=== PATIENT | male | born 1980 | race Caucasian/White ===

== ENCOUNTER 2023-02-25 11:47 | Inpatient (IN) | payer MEDICAID, SELFPAY ==
[2023-02-25 11:40] VITALS: BMI 25.8
[2023-02-25 11:51] VITALS: BP 131/71; PULSE 76; RESP 18; TEMP 36.5; O2SAT 99
[2023-02-25 14:00] VITALS: BP 104/66; PULSE 72; RESP 16; TEMP 36.7; O2SAT 97
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
[2023-02-25 20:13] VITALS: BP 111/71; PULSE 70; RESP 18; TEMP 36.7; O2SAT 97
[2023-02-25] MEDS: quetiapine 300 mg Tablet 150 MG PO (21:10)
[2023-02-26 06:00] VITALS: RESP 16
[2023-02-26] MEDS: lamoTRIgine 25 mg Tablet 50 MG PO (07:42)
[2023-02-26] MEDS: naltrexone hcl 50 mg Tablet PO (07:42)
[2023-02-26] MEDS: hyDROXYzine 25 mg Capsule 50 MG PO (12:37)
[2023-02-26 14:00] VITALS: BP 117/70; PULSE 75; RESP 20; TEMP 36.4; O2SAT 97
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
[2023-02-26] MEDS: quetiapine 100 mg Tablet 250 MG PO (20:43)
[2023-02-26 20:54] VITALS: BP 110/58; PULSE 80; RESP 18; TEMP 36.7; O2SAT 98
[2023-02-27 06:00] VITALS: RESP 18
[2023-02-27] MEDS: naltrexone hcl 50 mg Tablet PO (08:20)
[2023-02-27] MEDS: lamoTRIgine 25 mg Tablet 50 MG PO (08:20)
[2023-02-27] MEDS: hyDROXYzine 25 mg Capsule 50 MG PO ×2 (12:30→18:14)
[2023-02-27 14:00] VITALS: BP 112/77; PULSE 86; RESP 18; TEMP 36.6; O2SAT 97
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
[2023-02-27] MEDS: quetiapine 300 mg Tablet PO (20:09)
[2023-02-27 22:00] VITALS: BP 123/84; PULSE 72; RESP 16; TEMP 36.8; O2SAT 98
[2023-02-28 06:00] VITALS: RESP 15
[2023-02-28] MEDS: lamoTRIgine 25 mg Tablet 50 MG PO (09:15)
[2023-02-28] MEDS: hyDROXYzine 25 mg Capsule 50 MG PO (09:15)
[2023-02-28] MEDS: naltrexone hcl 50 mg Tablet PO (09:15)
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
[2023-02-28 11:22] VITALS: BP 123/84; PULSE 72; RESP 15; TEMP 36.8; O2SAT 98
== END 2023-02-28 11:36 | disposition home or self-care (01) | DRG 897 ==
PROVIDERS: Admitting Provider Psychiatry & Neurology Psychiatry; Visit Provider Psychiatry & Neurology Psychiatry
DX: F15.259 Other stimulant dependence with stimulant-induced psychotic disorder, unspecified (principal); F32.9 Major depressive disorder, single episode, unspecified; F43.10 Post-traumatic stress disorder, unspecified; Z87.440 Personal history of urinary (tract) infections; Z98.84 Bariatric surgery status
CPT/HCPCS: 97150; 97165

== ENCOUNTER 2023-08-28 12:12 | Emergency (ER) | payer MEDICAID, SELFPAY ==
[2023-08-28 12:18] VITALS: BP 129/63; PULSE 85; RESP 16; TEMP 36.8; O2SAT 99; BMI 24.3
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
[2023-08-28 12:45] VITALS: PULSE 78; RESP 17; O2SAT 98
== END 2023-08-28 12:46 | disposition home or self-care (01) ==
PROVIDERS: Emergency Provider Emergency Medicine
DX: F41.9 Anxiety disorder, unspecified (principal); F15.10 Other stimulant abuse, uncomplicated
CPT/HCPCS: 99283

== ENCOUNTER 2023-08-29 10:27 | Inpatient (IN) | payer MEDICAID, SELFPAY ==
--- NOTE | 2023-08-29 10:33 | ED.C_ITS ---
HPI - Psych General: Stated Complaint: 96 Hold Time Seen by Provider: 08/29/23 10:30 Source: patient and police Mode of arrival: ambulatory Limitations: no limitations History of Present Illness: 42-year-old male history of meth abuse patient's here on a 96-hour hold placed by his mother patient arrived with police states that he believes that most people are a I believe that some people are out to get him been feeling paranoid he denies any suicidality or homicidality last meth use was 5 days ago. Associated symptoms: Deny depression Review of Systems Const: Denies: fever(s), chills, body aches or change in appetite Eyes: Denies: blurry vision or eye discomfort ENMT: Denies: throat pain or dental pain Card: Denies: chest pain Resp: Denies: dyspnea GI: Denies: abdominal pain, nausea, vomiting or diarrhea : Denies: dysuria Musc: Denies: neck pain or back pain Skin/Breast: Denies: rash Neuro: Denies: headache(s) Psych: Reports: paranoia; Denies: depression Physical Exam Const: COMMON NORMALS: patient oriented x3 HENMT: COMMON NORMALS: normocephalic and atraumatic HEAD & SCALP: normocephalic and atraumatic Eye: COMMON NORMALS: Equal, round and reactive pupils present and EOMs intact bilaterally PUPIL: Yes Equal, round and reactive pupils present Neck/C-Spine: COMMON NORMALS: full ROM and supple Chest: COMMONS NORMALS: normal inspection of the chest Resp: COMMON NORMALS: normal respiratory effort Cardio: COMMON NORMALS: regular rate, regular rhythm and No murmurs present (Cardio) RATE: regular rate RHYTHM: regular rhythm GI: COMMON NORMALS: Normal to inspection, nondistended, normoactive bowel sounds present, Soft to palpation, non-tender and no masses PALPATION: Yes Soft to palpation Extremity: COMMON NORMALS: normal to inspection and full ROM Neuro: COMMON NORMALS: patient oriented x3, moves all extremities and no focal motor deficits Psych: COMMON NORMALS: mental status grossly normal, Normal thought process present and cooperative THOUGHT PROCESS: Normal thought process present THOUGHT CONTENT: Yes Derealization present Skin: COMMON NORMALS: no rashes or lesions noted and no wounds GENERAL SKIN EXAM: no rashes or lesions noted MDM - Psych Medical Decision Making Patient presents here under 96-hour hold for paranoia he also history of meth abuse patient is cooperative here I spoke to psychiatrist will admit to the psych yadav at this time. Medical Records I reviewed the patient's medical records. Lab Data I reviewed the patient's lab results. 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
[2023-08-29 10:40] VITALS: BP 128/81; PULSE 73; RESP 18; TEMP 36.8; O2SAT 97
[2023-08-29 10:56] LABS: Basophils % 0.5 %; Eosinophils % 0.2 %; Hematocrit 42.8 % (37-53); Lymphocytes % 16.5 %; Mean Corpuscular HGB Conc 34.3 g/dL (30-55); Mean Corpuscular Hemoglobin 33.3 pg (27-33); Mean Corpuscular Volume 97.1 fl (82-101); Monocytes # 0.3 10^3/uL (0.2-0.9); Monocytes % 5.2 %; Neutrophils # 4.61 10^3/uL (1.8-7.7); Neutrophils % 77.4 %; Nucleated Red Blood Cells % 0 %; Platelet Count 186 10^3/cmm (157-399); Red Blood Count 4.41 10^6/uL (3.85-5.65); Red Cell Distribution Width 11.6 % (12.1-15.1); White Blood Count 5.95 10^3/uL (3.29-11.43)
--- NOTE | 2023-08-29 11:00 | PC.NURSE ---
96 hour hold rights reviewed and read with patient. Patient verbalized understandings. Copy of rights left at the bedside with patient.
--- NOTE | 2023-08-29 11:04 | PC.PHAR ---
WAITING TRAFFIC INVESTIGATOR BACK FROM [facility] IN [place] TO COMPLETE MED REC
[2023-08-29 11:08] LABS: Amphetamines Screen Urine Negative (Negative); Barbiturates Screen Urine Negative (Negative); Benzodiazepines Screen Urine Negative (Negative); Cocaine Screen Urine Negative (Negative); Opiate Screen Urine Negative (Negative); PCP Screen Urine Negative (Negative); THC Screen Urine Positive (Negative)
[2023-08-29 11:13] LABS: Alanine Aminotransferase 12 U/L (0-41); Albumin Level 4.2 g/dL (3.5-5.2); Alkaline Phosphatase 83 U/L (40-130); Anion Gap 10.1 (5-19); Aspartate Amino Transferase 12 U/L (0-40); Blood Urea Nitrogen 10 mg/dL (6-20); Calcium 9.1 mg/dL (8.5-10.5); Carbon Dioxide 29 mmol/L (22-29); Chloride 103 mmol/L (98-107); Globulin 2.1 g/dL (1.3-4.6); Glucose 94 mg/dL (65-115); Osmolality Calculated 285 mOsm/kg (285-295); Potassium 4.1 mmol/L (3.5-5.1); Salicylate 0.5 mg/dL (3-10); Sodium 138 mmol/L (136-145); Total Bilirubin 0.5 mg/dL (0.15-1.2); Total Protein 6.3 g/dL (6.6-8.7)
[2023-08-29 11:16] LABS: Acetaminophen < 5.0 ug/mL (10-30); Alcohol Level < 10 mg/dL (0-10)
[2023-08-29 11:54] VITALS: BP 138/81; PULSE 70; RESP 16; TEMP 36.4; O2SAT 100
[2023-08-29] MEDS: hyDROXYzine 25 mg Capsule 50 MG PO (12:12)
[2023-08-29 14:00] VITALS: BP 138/81; PULSE 70; RESP 16; TEMP 36.4; O2SAT 100
[2023-08-29] MEDS: OLANZapine 5 mg ODT PO (15:49)
--- NOTE | 2023-08-29 15:50 | PC.NURSE ---
Patient agitated, wanting something. administered 5mg zyprexa odt.
[2023-08-29 20:13] VITALS: BP 102/63; PULSE 51; RESP 16; TEMP 36.8; O2SAT 96
[2023-08-30] MEDS: trazodone 50 mg Tablet PO ×3 (01:55→23:25)
[2023-08-30 06:00] VITALS: BP 124/77; PULSE 56; RESP 16; TEMP 36.5; O2SAT 96
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
[2023-08-30] MEDS: hyDROXYzine 25 mg Capsule 50 MG PO (09:36)
[2023-08-30] MEDS: lamoTRIgine 25 mg Tablet 50 MG PO (12:10)
[2023-08-30] MEDS: paliperidone ER 3 mg Tablet PO (12:10)
[2023-08-30] MEDS: OLANZapine 5 mg ODT PO (12:11)
[2023-08-30 14:00] VITALS: BP 107/63; PULSE 56; RESP 16; TEMP 36.6; O2SAT 98
[2023-08-30 19:42] VITALS: BP 116/70; PULSE 61; RESP 15; TEMP 36.9; O2SAT 95
[2023-08-31 06:00] VITALS: BP 123/77; PULSE 58; RESP 14; TEMP 36.9; O2SAT 94
[2023-08-31] MEDS: lamoTRIgine 25 mg Tablet 50 MG PO (07:36)
[2023-08-31] MEDS: paliperidone ER 3 mg Tablet PO (07:36)
[2023-08-31] MEDS: hyDROXYzine 25 mg Capsule 50 MG PO ×2 (12:31→19:14)
[2023-08-31 14:00] VITALS: BP 118/68; PULSE 83; RESP 16; TEMP 36.6; O2SAT 97
--- NOTE | 2023-08-31 17:54 | W.PM.NPUPNS ---
Subjective NPU Subjective: Patient presented today reporting that things are going okay. He reports that he feels like the medications are working effectively and he is feeling better. He continues to have the stress of having issues that he needs to manage at home. 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 Continues to be ambivalent about significant changes and downplays his methamphetamine use. Mental Status Exam MSE Comments: This is a well-nourished well-developed male with hospital scrubs on with limited grooming and eye contact. No abnormal movements. Cooperative with exam in mild distress. Speech was decreased rate and volume. Mood described as anxious affect congruent. Thought process organized. Thought content: Patient denies suicidal or homicidal ideation, there were no delusions reported or noted, he denied any auditory or visual hallucinations. Attention and concentration were intact and memory appeared reliable but none were formally tested. He is alert and oriented x3. Insight, judgment and impulse control are impaired. Vitals/I&O/Wt Last Vital Signs Temp 98 F 08/31/23 14:00 Pulse 83 08/31/23 14:00 Resp 16 08/31/23 14:00 BP 118/68 08/31/23 14:00 Pulse Ox 97 08/31/23 14:00 O2 Del Method Room Air 08/31/23 14:00 Data NPU 08/29/23 10:47 08/29/23 10:47 A&P Assessment and plan (1) Psychotic disorder: (2) Methamphetamine dependence: Plan Is a 42-year-old male admitted with active psychotic symptoms with an extended history of methamphetamine dependence with continued evidence of unusual thinking and bizarre behavior. Who returns with continued active addiction, anxiety on a 96-hour hold 1.? ? Engage? patient in individual ,milieu, and group therapy ?2. ? We will attempt to gather collateral information from previous providers. Continued his Lamictal at 50 mg p.o. daily and discontinue to respite all and started Invega 3 mg p.o. daily with a plan to increase to 6 mg tomorrow. ?3. ? TO-15 minute checks on the unit. ?4.? Recommend sober living treatment at the highest level of care to which the patient is willing to commit. Involuntary Hold Information 96 Hour Hold: 96 Hour Involuntary Admission: Yes 96 Hour Hold Ending Date: 09/04/23 96 Hour Hold Ending Time: 10:50 Attestations NPU Medical Necessity Statement*: Inpatient hospitalization is medically necessary and deemed to be the clinically appropriate intervention at this time. We will monitor and initiate medications while making changes as indicated. The likely length of stay is 2-4 days. Coding Level of Care Code Acute Code for Chg Fwd Diagnoses Psychotic disorder F29 Methamphetamine dependence F15.20
[2023-08-31 20:12] VITALS: BP 107/66; PULSE 65; RESP 18; TEMP 36.8; O2SAT 100
[2023-08-31] MEDS: trazodone 50 mg Tablet PO (20:56)
[2023-09-01] MEDS: OLANZapine 5 mg ODT PO (00:06)
[2023-09-01 06:00] VITALS: RESP 16
[2023-09-01] MEDS: paliperidone ER 6 mg Tablet PO (07:51)
[2023-09-01] MEDS: lamoTRIgine 25 mg Tablet 50 MG PO (07:51)
--- NOTE | 2023-09-01 08:15 | W.PM.NPUPNS ---
Subjective NPU Subjective: Patient presented today reporting that he is adjusting to the resumption of his medications. He denies any issues on the unit and was hopeful that discharge would be coming sooner rather than later. He did express some concern about the growing swelling in his left antecubital fossa that he identifies as a place of a recent previous injection. We discussed that there were no signs of infection, however we would get a consultation. He denied any other issues. Mental Status Exam MSE Comments: This is a well-nourished well-developed male with hospital scrubs on with limited grooming and eye contact. No abnormal movements. Cooperative with exam in mild distress. Speech was decreased rate and volume. Mood described as a little better, affect congruent. Thought process organized. Thought content: Patient denies suicidal or homicidal ideation, there were no delusions reported or noted, he denied any auditory or visual hallucinations. Attention and concentration were intact and memory appeared reliable but none were formally tested. He is alert and oriented x3. Insight, judgment and impulse control are impaired. Vitals/I&O/Wt Last Vital Signs Temp 98.3 F 08/31/23 20:12 Pulse 65 08/31/23 20:12 Resp 16 09/01/23 06:00 BP 107/66 08/31/23 20:12 Pulse Ox 100 08/31/23 20:12 O2 Del Method Room Air 08/31/23 20:12 Data NPU 08/29/23 10:47 08/29/23 10:47 A&P Assessment and plan (1) Psychotic disorder: (2) Methamphetamine dependence: Plan Is a 42-year-old male admitted with active psychotic symptoms with an extended history of methamphetamine dependence with continued evidence of unusual thinking and bizarre behavior. Who returns with continued active addiction, anxiety on a 96-hour hold 1.? Engage? patient in individual ,milieu, and group therapy ?2. ? We will attempt to gather collateral information from previous providers. Continued his Lamictal at 50 mg p.o. daily and discontinue to respite all and started Invega 3 mg p.o. daily with a plan to increase to 6 mg tomorrow. ?3. ? TO-15 minute checks on the unit. ?4.? Recommend sober living treatment at the highest level of care to which the patient is willing to commit. 5. Obtain hospitalist consult to evaluate nonerythematous swelling in the right antecubital fossa. No signs of infection but notable growth since admission. Involuntary Hold Information 96 Hour Hold: 96 Hour Involuntary Admission: Yes 96 Hour Hold Ending Date: 09/04/23 96 Hour Hold Ending Time: 10:50 Attestations NPU Medical Necessity Statement*: Inpatient hospitalization is medically necessary and deemed to be the clinically appropriate intervention at this time. We will monitor and initiate medications while making changes as indicated. The likely length of stay is 2-4 days. Coding Level of Care Code Acute Code for [facility] Fwd Diagnoses Psychotic disorder F29 Methamphetamine dependence F15.20
[2023-09-01] MEDS: hyDROXYzine 25 mg Capsule 50 MG PO (12:25)
[2023-09-01 14:00] VITALS: BP 124/86; PULSE 89; RESP 16; TEMP 36.8; O2SAT 98
--- NOTE | 2023-09-01 17:58 | PC.NURSE ---
Patient reporting swelling in right antecubital area. This RN examined it and observed that it seemed to be enlarged and hardened. Concerns discussed with doctor quigley and dr byrne was contacted for consult.
--- NOTE | 2023-09-01 18:45 | PM.CONSULT ---
Providers/Reason For Consult Consulting Physician/Specialty*: Hospitalist Reason for Consult*: rt arm swelling Attending Physician: Jos Chi MD History of Present Illness History of Present Illness Kevin Guthrie is a 42 year old male who is here in neuropsychiatric unit, hospital service consulted for evaluation of right antecubital fossa swelling. Patient is stating that he injected drugs which she thought was methamphetamine, he has not noticed any fever, nausea, vomiting excessive redness however he thinks the size of not has increased, he has not noticed swelling of right arm other than that localized area it is tender on palpation. Patient is stating that he noticed this knot roughly 6 days ago. I will request CBC, procalcitonin and BMP will request ultrasound to rule out abscess Review of Systems Const: Denies: fever(s) Eyes: Denies: change in vision ENMT: Denies: odynophagia Card: Denies: chest pain Resp: Denies: dyspnea GI: Denies: abdominal pain : Denies: urinary frequency Musc: Denies: neck pain Medications/Allergies Home Medications Medication Instructions Recorded Confirmed Last Taken Type No Known Home Medications 08/29/23 08/29/23 Unknown History Allergies Allergy/AdvReac Type Severity Reaction Status Date / Time No Known Drug Allergies Allergy Unknown Verified 08/29/23 10:49 Current Medications Generic Name Dose Route Start Last Admin Trade Name Freq PRN Reason Stop Dose Admin Hydroxyzine Pamoate 50 mg 08/29/23 11:54 09/01/23 12:25 Hydroxyzine 25 Mg Capsule PO 50 mg Q6H PRN Administration ANXIETY Lamotrigine 50 mg 08/30/23 11:54 09/01/23 07:51 Lamotrigine 25 Mg Tablet PO 50 mg DAILY BRAYDON Administration Olanzapine 5 mg 08/29/23 11:54 09/01/23 00:06 Olanzapine 5 Mg Odt PO 5 mg Q4H PRN Administration Agitation/Psychosis Paliperidone 6 mg 09/01/23 09:00 09/01/23 07:51 Paliperidone Er 6 Mg Tablet PO 6 mg DAILY BRAYDON Administration Trazodone HCl 50 mg 08/29/23 11:54 08/31/23 20:56 Trazodone 50 Mg Tablet PO 50 mg BEDTIME PRN Administration SLEEP Vitals/I&O/Wt Last Vital Signs Temp 98.3 F 09/01/23 14:00 Pulse 89 09/01/23 14:00 Resp 16 09/01/23 14:00 BP 124/86 09/01/23 14:00 Pulse Ox 98 09/01/23 14:00 O2 Del Method Room Air 09/01/23 14:00 Physical Exam Narrative: Right arm localized swelling tender on palpation No sign of hyperemia or cellulitis It is soft on palpation, mobile, no hyperemia Arm without swelling Patient is walking around without any difficulty S1, S2 GCS 15 Present Currently on room air Data 08/29/23 10:47 08/29/23 10:47 A&P Assessment and plan (1) Anxiety: (2) Methamphetamine abuse: (3) Paranoia: (4) Right axillary swelling: Plan Rule out abscess Add doxycycline Requested CBC procalcitonin and BMP Will request ultrasound No active signs of cellulitis No sign of sepsis Rule out DVT Consult Attestations Medical Necessity Statement: As per NPU Diagnoses Anxiety F41.9 Methamphetamine abuse F15.10 Paranoia F22 Right axillary swelling M79.89
[2023-09-01 20:23] VITALS: BP 107/64; PULSE 63; RESP 16; TEMP 36.6; O2SAT 97
[2023-09-01] MEDS: doxycycline 100 mg Tablet PO (20:41)
[2023-09-01] MEDS: trazodone 50 mg Tablet PO (20:41)
[2023-09-02] MEDS: haloperidol 5 mg Tablet PO (00:01)
[2023-09-02] MEDS: hyDROXYzine 25 mg Capsule 50 MG PO (00:01)
[2023-09-02] MEDS: trazodone 50 mg Tablet PO (01:37)
[2023-09-02] MEDS: OLANZapine 5 mg ODT PO (05:53)
[2023-09-02 05:59] VITALS: BP 135/85; PULSE 72; RESP 17; TEMP 36.7; O2SAT 96
[2023-09-02 06:00] VITALS: BMI 23.7
--- NOTE | 2023-09-02 06:00 | USR_ITS ---
PROCEDURE INFORMATION: Exam: US Duplex Right Upper Extremity Veins, Limited Exam date and time: 09/02/2023 9:56 AM Age: 42 years old Clinical indication: Edema, localized; Upper extremity, right; Patient HX: Patient states he missed when sticking himself with a needle. ; Additional info: Right arm antecubital fossa swelling TECHNIQUE: Imaging protocol: Real-time duplex ultrasound of the right Upper Extremity with 2-D montejo scale, color Doppler flow and spectral waveform analysis with image documentation. Limited exam focused on the right upper extremity veins. COMPARISON: No relevant prior studies available. FINDINGS: Right deep veins: Unremarkable. Axillary and brachial veins are patent throughout without thrombus. Normal Doppler waveforms. Normal compressibility and/or augmentation response. Visualized internal jugular and subclavian veins are patent. Superficial veins: Unremarkable. Visualized cephalic and basilic veins are patent without thrombus. Soft tissues: Unremarkable. US/[place] [id number] IMPRESSION: No evidence of deep vein thrombosis.
[2023-09-02] MEDS: lamoTRIgine 25 mg Tablet 50 MG PO (08:01)
[2023-09-02] MEDS: doxycycline 100 mg Tablet PO ×2 (08:01→20:37)
[2023-09-02] MEDS: paliperidone ER 6 mg Tablet PO (08:01)
[2023-09-02 08:20] LABS: Basophils % 0.7 %; Eosinophils # 0.1 10^3/uL (0.0-0.8); Eosinophils % 1.9 %; Hematocrit 47.9 % (37-53); Lymphocytes # 1.6 10^3/uL (0.8-4.8); Lymphocytes % 36.7 %; Mean Corpuscular HGB Conc 34.4 g/dL (30-55); Mean Corpuscular Hemoglobin 33.3 pg (27-33); Mean Corpuscular Volume 96.8 fl (82-101); Mean Platelet Volume 10.1 fL (7.4-10.4); Monocytes # 0.3 10^3/uL (0.2-0.9); Monocytes % 7.8 %; Neutrophils # 2.25 10^3/uL (1.8-7.7); Neutrophils % 52.9 %; Nucleated Red Blood Cells % 0 %; Platelet Count 207 10^3/cmm (157-399); Red Blood Count 4.95 10^6/uL (3.85-5.65); Red Cell Distribution Width 11.6 % (12.1-15.1); White Blood Count 4.25 10^3/uL (3.29-11.43)
[2023-09-02 08:43] LABS: Alanine Aminotransferase 13 U/L (0-41); Albumin Level 4.7 g/dL (3.5-5.2); Alkaline Phosphatase 91 U/L (40-130); Anion Gap 13.9 (5-19); Aspartate Amino Transferase 12 U/L (0-40); Blood Urea Nitrogen 15 mg/dL (6-20); Calcium 9.8 mg/dL (8.5-10.5); Carbon Dioxide 30 mmol/L (22-29); Chloride 101 mmol/L (98-107); Globulin 2.4 g/dL (1.3-4.6); Glucose 90 mg/dL (65-115); Osmolality Calculated 290 mOsm/kg (285-295); Potassium 4.9 mmol/L (3.5-5.1); Sodium 140 mmol/L (136-145); Total Bilirubin 0.4 mg/dL (0.15-1.2); Total Protein 7.1 g/dL (6.6-8.7)
--- NOTE | 2023-09-02 08:49 | W.PM.NPUPNS ---
Subjective NPU Subjective: Presented today reporting that he is doing okay but he did not have a great night. He talked about not feeling good and we got the possibility that the antibiotic was not sitting with him well. We discussed working with the social work team on plan for discharge in the next 48 hours. Mental Status Exam MSE Comments: This is a well-nourished well-developed male with hospital scrubs on with limited grooming and eye contact. No abnormal movements. Cooperative with exam in mild distress. Speech was decreased rate and volume. Mood described as okay I did sleep well last night, affect congruent. Thought process organized. Thought content: Patient denies suicidal or homicidal ideation, there were no delusions reported or noted, he denied any auditory or visual hallucinations. Attention and concentration were intact and memory appeared reliable but none were formally tested. He is alert and oriented x3. Insight, judgment and impulse control are impaired. Vitals/I&O/Wt Last Vital Signs Temp 98.1 F 09/02/23 05:59 Pulse 72 09/02/23 05:59 Resp 17 09/02/23 05:59 BP 135/85 09/02/23 05:59 Pulse Ox 96 09/02/23 05:59 O2 Del Method Room Air 09/02/23 05:59 Weight last 48 hrs Weight 75.07 kg Data NPU 09/02/23 08:07 09/02/23 08:07 A&P Assessment and plan (1) Psychotic disorder: (2) Methamphetamine dependence: Plan Is a 42-year-old male admitted with active psychotic symptoms with an extended history of methamphetamine dependence with continued evidence of unusual thinking and bizarre behavior. Who returns with continued active addiction, anxiety on a 96-hour hold 1.? Engage? patient in individual ,milieu, and group therapy ?2. ? We will attempt to gather collateral information from previous providers. Continued his Lamictal at 50 mg p.o. daily and discontinue to respite all and started Invega 3 mg p.o. daily. Increased to 6 mg. ?3. ? TO-15 minute checks on the unit. ?4.? Recommend sober living treatment at the highest level of care to which the patient is willing to commit. 5. Obtain hospitalist consult to evaluate nonerythematous swelling in the right antecubital fossa. No signs of infection but notable growth since admission. Appreciate consult will follow for any additional recommendations. Involuntary Hold Information 96 Hour Hold: 96 Hour Involuntary Admission: Yes 96 Hour Hold Ending Date: 09/04/23 96 Hour Hold Ending Time: 10:50 Attestations NPU Medical Necessity Statement*: Inpatient hospitalization is medically necessary and deemed to be the clinically appropriate intervention at this time. We will monitor and initiate medications while making changes as indicated. The likely length of stay is 1 3 days. Coding Level of Care Code Acute Code for [facility] Diagnoses Psychotic disorder F29 Methamphetamine dependence F15.20
[2023-09-02 08:50] LABS: Procalcitonin 0.02 ng/mL (0-0.5)
[2023-09-02 14:00] VITALS: BP 117/73; PULSE 68; RESP 14; TEMP 36.8; O2SAT 98
[2023-09-02 20:48] VITALS: BP 131/82; PULSE 83; RESP 16; TEMP 36.4; O2SAT 97
[2023-09-03 06:00] VITALS: BP 146/72; PULSE 61; RESP 13; O2SAT 96
[2023-09-03] MEDS: lamoTRIgine 25 mg Tablet 50 MG PO (07:46)
[2023-09-03] MEDS: doxycycline 100 mg Tablet PO (07:46)
[2023-09-03] MEDS: paliperidone ER 6 mg Tablet PO (07:47)
--- NOTE | 2023-09-03 12:00 | P.PN_ITS ---
Subjective Subjective: seen today says his duran in arm is somewhat better duplex negative for DVT Vitals/I&O/Wt Last Vital Signs Temp 97.6 F 09/02/23 20:48 Pulse 61 09/03/23 06:00 Resp 13 09/03/23 06:00 BP 146/72 09/03/23 06:00 Pulse Ox 96 09/03/23 06:00 O2 Del Method Room Air 09/03/23 06:00 Weight last 48 hrs Weight 75.07 kg Physical Exam Narrative: right arm localized mobile fluctuance in anticubital region, no swelling noted, no erythema lungs cta b/l abd soft Data 09/02/23 08:07 09/02/23 08:07 A&P Assessment and plan (1) Psychotic disorder: (2) Methamphetamine dependence: Plan no abscess noted doxycycline x5 days at discharge. labs reviewed. US r/o dvt No active signs of cellulitis No sign of sepsis patient will be dc today as per psych Attestations Medical Necessity Statement*: as per primary team Diagnoses Psychotic disorder F29 Methamphetamine dependence F15.20
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
[2023-09-03 12:40] VITALS: BP 146/72; PULSE 61; RESP 13; O2SAT 96
[2023-09-03 13:33] VITALS: BP 159/100; PULSE 94; RESP 16; TEMP 36.3; O2SAT 98
== END 2023-09-03 13:35 | disposition home or self-care (01) | DRG 885 ==
LOC: ER 10:40 → NP 11:33
PROVIDERS: Internal Medicine; Admitting Provider Psychiatry & Neurology Psychiatry; Emergency Provider Emergency Medicine; Visit Provider Psychiatry & Neurology Psychiatry
DX: F29 Unspecified psychosis not due to a substance or known physiological condition (principal); F15.20 Other stimulant dependence, uncomplicated; F41.9 Anxiety disorder, unspecified; R22.31 Localized swelling, mass and lump, right upper limb
CPT/HCPCS: 36415; 80053; 80306; 80307; 84145; 85025; 93971; 97150; 97165; 99285